=== PATIENT | female | born 1965 | race Caucasian/White ===

== ENCOUNTER 2020-04-29 00:22 | Emergency (ER) | payer BC, OTHER ==
[2020-04-29] MEDS ORDERED: Diphtheria,Pertussis(Acell),Tetanus Vaccine 0.5 ML Syringe IM ONE (00:39)
[2020-04-29] MEDS ORDERED: Ondansetron 4 MG Tab.DIS PO ONE (00:40)
--- NOTE | 2020-04-29 00:40 | EDM.PDOC ---
ED HPI GENERAL MEDICAL PROBLEM - General Stated Complaint: "fell on face" Time Seen by Provider: 04/29/20 00:31 Source of Information: Reports: Patient, Significant Other History Limitations: Reports: No Limitations - History of Present Illness INITIAL COMMENTS - FREE TEXT/NARRATIVE: This patient is a 54 year old female that presents to the ER. Patient is accompanied by significant other. Patient and significant other give history. Patient reports she had just got back home form a hockey game. She reports they pulled into the driveway, she got out of the car. They both were going to smoke a cigarette before going inside. At that time, patient became dizzy and fell forward hitting her head. Significant other and patent deny she passed out, loc, seizure. Reports she was alert and oriented to whole time. Patient reports that she drank about 8 beers tonight. The patient reports having facial pain, headache, nausea, left knee pain. The patient is alert and oriented. GCS 15. Patient airway is intact. No obvious areas of blood loss, bleeding, or obvious deformities. Patient is not taking any blood thinners. CT of head, facial, cervical ordered due to patient mechanism of fall, +ETOH, adn injury evaluated on exam. Patient reports her dizziness is due to drinking tonight. Labs, EKG, CXR ordered to r/o other causes. Zofran given for nausea. bus driver/monitor ordered. Patient undressed for exam. TDAP addressed. Onset: Today Onset Date: 04/29/20 Onset Time: 23:30 Location: Reports: Head, Face, Lower Extremity, Left Front/Back Body Image: 1 - large external hematoma, swelling, pain, tenderness. 2 - superficial laceration 3 - abrasion, swelling, pain, tenderness. Severity: Moderate Improves with: Reports: None Worsens with: Reports: None Associated Symptoms: Reports: Headaches, Nausea/Vomiting. Denies: Confusion, Chest Pain, Cough, cough w sputum, Diaphoresis, Fever/Chills, Loss of Appetite, Malaise, Rash, Seizure, Shortness of Breath, Syncope, Weakness Treatments CUSTOMER SERVICE SECURITY OFFICER: Reports: Cold Therapy Forehead Pain Score (Numeric/FACES): 9 - Related Data Allergies Allergy/AdvReac Type Severity Reaction Status Date / Time Penicillins Allergy Anaphylactic Verified 04/29/20 00:43 Shock Home Meds: Home Meds . [No Known Home Meds] 04/29/20 [History] ED ROS GENERAL - Review of Systems Review Of Systems: See Below Constitutional: Reports: No Symptoms HEENT: Reports: Other (facial pain, jaw pain) Respiratory: Reports: No Symptoms. Denies: Shortness of Breath, Pleuritic Chest Pain, Cough, Sputum, Hemoptysis Cardiovascular: Reports: No Symptoms. Denies: Chest Pain, Dyspnea on Exertion, Edema, Palpitations, Syncope Endocrine: Reports: No Symptoms GI/Abdominal: Reports: Nausea. Denies: Abdominal Pain, Difficulty Swallowing, Vomiting : Reports: No Symptoms Musculoskeletal: Reports: Joint Pain (left anterior knee), Joint Swelling (left anterior knee) Skin: Reports: Bruising (facial), Wound (facial abrasion) Neurological: Reports: Dizziness, Headache. Denies: Confusion, Seizure Psychiatric: Reports: No Symptoms Hematologic/Lymphatic: Reports: No Symptoms Immunologic: Reports: No Symptoms ED EXAM, HEAD INJURY - Physical Exam Exam: See Below Exam Limited By: No Limitations General Appearance: Alert, WD/WN, No Apparent Distress, Obese Head: Facial Ecchymosis (central forehead), Facial Lacerations (superficial philtrum laceration. 1cm.), Facial Swelling (central forehead), Facial Tenderness (central forehead. Right inferior, supraorbital tenderness. Nasal tenderness. ). No: Scalp Lacerations, Scalp Swelling, Scalp Abrasions, Scalp E cchymosis, Scalp Hematoma, Scalp Tenderness, Active Bleeding Nexus Criteria: Evidence of Intoxication, Painful Distraction Injuries. No: Posterior, Midline Cervical Tenderness, Altered Level of Consciousness, Focal Neurological Deficit Eyes: Bilateral Eye: EOMI, Normal Inspection, PERRL Ears: Normal External Exam, Normal Canal, Hearing Grossly Normal, Normal TMs Nose: Normal Inspection, Normal Mucousa, No Blood Throat/Mouth: Normal Inspection, Normal Lips, Normal Teeth, Normal Gums, Normal Oropharynx, Normal Voice, No Airway Compromise, Other (Moderate trismus. mandib le bilateral clicking on opening and closing. Patient reports chronic TMJ, that clicking is chronic per patient. ). No: Dental Tenderness, Dental Trauma, Lip Swelling, Muffled Voice, Tongue Swelling, Uvular Deviation, Uvular Edema Neck: Non-Tender, Full Range of Motion, Normal Alignment (no stepoffs), Normal Inspection. No: Muscle Spasm, Painful Range of Motion, Paraspinous Muscle Tender, Spinous Processes Tender, Stiff Neck, Tenderness, Tender Lateral, Tender Midline Respiratory: No Respiratory Distress, Lungs Clear, Normal Breath Sounds, No Accessory Muscle Use, Chest Non-Tender Cardiovascular: Normal Peripheral Pulses, Regular Rate, Rhythm, No Edema, No Gallop, No JVD, No Murmur, No Rub GI/Abdominal Exam: Normal Bowel Sounds, Soft, Non-Tender, No Organomegaly, No Distention, No Abnormal Bruit, No Mass, Pelvis Stable (Female) Exam: Deferred Rectal (Female) Exam: Deferred Back Exam: Normal Inspection, Full Range of Motion. No: CVA Tenderness (L), CVA Tenderness (R), Decreased Range of Motion, Muscle Spasm, Paraspinal Tenderness, Vertebral Tenderness Extremities: Normal Range of Motion, No Pedal Edema, Normal Capillary Refill, Joint Swelling (left anterior inferior knee pain, swelling, tenderness, abrasion superficial. ROM intact. Neurovascular intact. Pulses +2, cap refill < 2 sec. Sensory/motor function intact. ) Neurologic: department secretary II-XII nml As Tested, No Motor/Sensory Deficits, Alert, Normal Mood/Affect, Oriented x 3 Skin: Normal Color, Warm/Dry - [place] Coma Score Best Eye Response ([place]): (4) Open Spontaneously Best Verbal Response ([place]): (5) Oriented Best Motor Response ([place]): (6) Obeys Commands [place] Total: 15 #1 Interpretation EKG Date: 04/29/20 Time: 13:21 Rhythm: NSR Rate (Beats/Min): 77 [place]: Normal P-Wave: Present QRS: Normal ST-T: Normal QT: Normal Comparison: NA - No Prior EKG Course - Vital Signs Last Recorded V/S: Last Vital Signs Temp 97.2 F 04/29/20 02:20 Pulse 90 04/29/20 00:38 Resp 20 04/29/20 00:38 BP 146/75 H 04/29/20 00:38 Pulse Ox 97 04/29/20 00:38 - Orders/Labs/Meds Orders: Active Orders 24 hr Category Date Time Status Cardiac Monitoring [RC] . DIRECTED Care 04/29/20 00:37 Active EKG Documentation Completion [RC] STAT Care 04/29/20 00:33 Active Neuro Check [RC] Q1HR Care 04/29/20 02:04 Active Vaccines to be Administered [RC] PER UNIT ROUTINE Care 04/29/20 00:39 Active Cervical Spine wo Cont [CT] Stat Exams 04/29/20 00:32 Taken Chest 2V [CR] Stat Exams 04/29/20 00:33 Taken Head wo Cont [CT] Stat Exams 04/29/20 00:32 Taken Head wo Cont [CT] Stat Exams 04/29/20 02:05 Ordered Knee Min 4V Lt [CR] Stat Exams 04/29/20 00:32 Taken Max Facial Sinus wo Cont [CT] Stat Exams 04/29/20 00:32 Taken Labs: Laboratory Tests 04/29/20 04/29/20 04/29/20 Range/Units 00:33 01:23 01:23 WBC 9.7 (5.0-10.0) 10^3/uL RBC 5.03 (4.00-5.50) 10^6/uL Hgb 16.0 (12.0-16.0) g/dL Hct 46.6 (37.0-47.0) % MCV 92.6 (82.0-94.0) fL MCH 31.8 (27.0-32.0) pg MCHC 34.3 (33.0-38.0) g/dL RDW Coeff of Kelsie 12.9 (11.0-15.0) % Plt Count 267 (150-400) 10^3/uL Neut % (Auto) 67.7 (35-85) % Lymph % (Auto) 22.0 (10-55) % [place] % (Auto) 7.1 (0-16) % Eos % (Auto) 2.8 (0-5) % Baso % (Auto) 0.4 (0-3) % Neut # (Auto) 6.53 (1.80-7.00) 10^3/uL Lymph # (Auto) 2.13 (1.00-4.80) 10^3/uL [place] # (Auto) 0.69 (0.00-0.80) 10^3/uL Eos # (Auto) 0.27 (0.00-0.45) 10^3/uL Baso # (Auto) 0.04 10^3/uL PT 10.0 (9.7-12.3) SEC INR 0.99 (0.92-1.18) APTT 23.1 L (23.2-32.3) SEC Sodium 148 H (136-145) mEq/L Potassium 3.8 (3.5-5.0) mEq/L Chloride 104 (98-106) mEq/L Carbon Dioxide 30 (21-32) mmol/L BUN 11 (7-18) mg/dL Creatinine 1.0 (0.6-1.0) mg/dL Est Cr Clr Drug Dosing 66.39 mL/min Estimated GFR (MDRD) 58 L (>=60) mL/min Glucose 98 (75-99) mg/dL Lactic Acid (0.4-2.0) mmol/L Calcium 8.9 (8.4-10.1) mg/dL Total Bilirubin 0.9 (0.0-1.0) mg/dL AST 18 (15-37) U/L ALT 35 (12-78) U/L Alkaline Phosphatase 80 (46-116) U/L Troponin I < 0.017 (0.00-0.06) ng/mL Total Protein 8.1 (6.4-8.2) g/dL Albumin 4.0 (3.4-5.0) g/dL Ethyl Alcohol 160 H (0-3) mg/dL 04/29/20 Range/Units 01:23 WBC (5.0-10.0) 10^3/uL RBC (4.00-5.50) 10^6/uL Hgb (12.0-16.0) g/dL Hct (37.0-47.0) % MCV (82.0-94.0) fL MCH (27.0-32.0) pg MCHC (33.0-38.0) g/dL RDW Coeff of Kelsie (11.0-15.0) % Plt Count (150-400) 10^3/uL Neut % (Auto) (35-85) % Lymph % (Auto) (10-55) % [place] % (Auto) (0-16) % Eos % (Auto) (0-5) % Baso % (Auto) (0-3) % Neut # (Auto) (1.80-7.00) 10^3/uL Lymph # (Auto) (1.00-4.80) 10^3/uL [place] # (Auto) (0.00-0.80) 10^3/uL Eos # (Auto) (0.00-0.45) 10^3/uL Baso # (Auto) 10^3/uL PT (9.7-12.3) SEC INR (0.92-1.18) APTT (23.2-32.3) SEC Sodium (136-145) mEq/L Potassium (3.5-5.0) mEq/L Chloride (98-106) mEq/L Carbon Dioxide (21-32) mmol/L BUN (7-18) mg/dL Creatinine (0.6-1.0) mg/dL Est Cr Clr Drug Dosing mL/min Estimated GFR (MDRD) (>=60) mL/min Glucose (75-99) mg/dL Lactic Acid 1.2 (0.4-2.0) mmol/L Calcium (8.4-10.1) mg/dL Total Bilirubin (0.0-1.0) mg/dL AST (15-37) U/L ALT (12-78) U/L Alkaline Phosphatase (46-116) U/L Troponin I (0.00-0.06) ng/mL Total Protein (6.4-8.2) g/dL Albumin (3.4-5.0) g/dL Ethyl Alcohol (0-3) mg/dL Meds: Medications Discontinued Medications Generic Name Dose Route Start Last Admin Trade Name Freq PRN Reason Stop Dose Admin Acetaminophen 1,000 mg 04/29/20 02:13 04/29/20 02:20 Tylenol Extra Strength PO 04/29/20 02:14 1,000 mg ONETIME ONE Administration Diphtheria/Tetanus/Acell Pertussis 0.5 ml 04/29/20 00:39 04/29/20 00:46 Boostrix IM 04/29/20 00:40 0.5 ml .ONCE ONE Administration Ondansetron HCl 4 mg 04/29/20 00:40 04/29/20 00:46 Zofran Odt PO 04/29/20 00:41 4 mg ONETIME ONE Administration - Radiology Interpretation Free Text/Narrative:: CXR: no acute findings Left Knee Xray: No acute findings Cervical CT: No acute findings Facial CT: No fractures Head CT: Soft tissue contusion overlying the frontal calvarium with favored trace extra-axial blood products are favored along the inferior right frontal lobe. CT Results Date: 04/29/20 CT Results Time: 01:45 - Re-Assessments/Exams Free Text/Narrative Re-Assessment/Exam: 04/29/20 01:51 Spoke to patient and significant other about her results. 04/29/20 0200 Called [facility] to speak with neurosurgeon Dr. Tellez. He has reviewed the patient ct and discussed the patient neurological status. He reports he can barely see the bleed. He reports there is nothing to do from a neurosurgical standpoint at this time. He reports no need to transfer the patient due to no intervention at this time. He reports just repeat head ct at 8am, if no increase in size and no neurological changes, can discharge the patient home. Due to head CT being done in 6 hours, will do an extended ER on patient, will discharge home if meets neurosurgeon criteria. 04/29/20 02:24 I spent a good 20 minutes talking with the patient and about patient condition and need for repeat head ct. Also discussed neurological checks and followup with neurosurgery. She states that she does not want to stay here any longer. She reports she is fine and just wants to go home. She reports she had a bad previous experience with a doctor years ago and does not want to stay here. She also has refused transfer to another facility. She reports her bad experience was not in the ER today. The patient does not appear to have gait ataxia. She is alert and oriented. Her alcohol level is 116. The reprots that since she wants to go home, he will take her home. He reports that its her decision. I discussed with him that she has increased ETOH and head injury. I explained to him that he is the responsible person for her. He reports that he will take her home and she will not stay because that is her request. He has assumed responsibility for her care and will take her AMA. I explained at great length the risk involved to both of them if she leaves that she could , the bleed could worsen. I also went over great detail things to look out for and return. I also asked if they would at least return for a repeat head ct. They said she may return later today to do that. Both will sign an AMA form and both are fully aware of the risks involved. Departure - Departure Time of Disposition: 02:21 Disposition: Against Medical Advice 07 Condition: Fair Clinical Impression: Concussion injury of brain, Intracranial hemorrhage Facial laceration Qualifiers: Encounter type: initial encounter Qualified Code(s): S01.81XA - Laceration without foreign body of other part of head, initial encounter Traumatic hematoma of face Qualifiers: Encounter type: initial encounter Qualified Code(s): S00.83XA - Contusion of other part of head, initial encounter Knee contusion Qualifiers: Encounter type: initial encounter Laterality: left Qualified Code(s): S80.02XA - Contusion of left knee, initial encounter Elevated ETOH level Qualifiers: Blood alcohol level: 120-199 mg/100 ml Qualified Code(s): Y90.6 - Blood alcohol level of 120-199 mg/100 ml - Discharge Information *PRESCRIPTION DRUG MONITORING PROGRAM REVIEWED*: Not Applicable *COPY OF PRESCRIPTION DRUG MONITORING REPORT IN PATIENT ALANNAH: Not Applicable Instructions: Traumatic Brain Injury, Facial or Scalp Contusion, [id number], Preventing Traumatic Brain Injury, Adult, Contusion, [id number], Head Injury, Adult, [id number], Nonsutured Laceration Care, Hematoma, [id number] Referrals: PCP,None [Primary Care Provider] - Additional Instructions: Followup with neurosurgery [facility] by calling for appointment [phone] Return to the ER for worsening of condition such as seizures, can not wake up, vomiting, not breathing, confusion, or any other concerns Increase fluids Tylenol for pain Keep wounds clean Knee: Rest, Ice, Elevate Face: Ice to reduce swelling Avoid Motrin, Aspirin, Excedrin, Aleve (NSAIDS) Please be aware, you have left against medical advice and are fully aware of the risk involved. Bleeding on the brain may worsen and may cause you to . Sepsis Event Note (ED) - Evaluation Sepsis Screening Result: No Definite Risk - Focused Exam Vital Signs: Vital Signs Temp Temp Pulse Resp BP Pulse Ox 04/29/20 02:20 97.2 F 04/29/20 00:38 97.7 F 90 20 146/75 H 97 - My Orders Last 24 Hours: My Active Orders 04/29/20 00:32 Cervical Spine wo Cont [CT] Stat Head wo Cont [CT] Stat Knee Min 4V Lt [CR] Stat Max Facial Sinus wo Cont [CT] Stat 04/29/20 00:33 EKG Documentation Completion [RC] STAT Chest 2V [CR] Stat 04/29/20 00:37 Cardiac Monitoring [RC] . DIRECTED 04/29/20 00:39 Vaccines to be Administered [RC] PER UNIT ROUTINE 04/29/20 02:04 Neuro Check [RC] Q1HR 04/29/20 02:05 Head wo Cont [CT] Stat - Assessment/Plan Last 24 Hours: My Active Orders 04/29/20 00:32 Cervical Spine wo Cont [CT] Stat Head wo Cont [CT] Stat Knee Min 4V Lt [CR] Stat Max Facial Sinus wo Cont [CT] Stat 04/29/20 00:33 EKG Documentation Completion [RC] STAT Chest 2V [CR] Stat 04/29/20 00:37 Cardiac Monitoring [RC] . DIRECTED 04/29/20 00:39 Vaccines to be Administered [RC] PER UNIT ROUTINE 04/29/20 02:04 Neuro Check [RC] Q1HR 04/29/20 02:05 Head wo Cont [CT] Stat Plan: PLEASE SEE RN NOTE FOR PFSH
[2020-04-29 01:36] LABS: CHLORIDE,CL 104 mEq/L (98-106); PTT,PARTIAL THROMBOPLSTIN TIME 23.1 SEC (23.2-32.3); SODIUM,NA 148 mEq/L (136-145)
[2020-04-29] MEDS ORDERED: Acetaminophen 500 MG Tab PO ONE (02:13)
== END 2020-04-29 02:35 | disposition left against medical advice (07) ==
LOC: CC.ED 00:22
DX: S06.300A Unspecified focal traumatic brain injury without loss of consciousness, initial encounter (principal); S01.81XA Laceration without foreign body of other part of head, initial encounter; S80.02XA Contusion of left knee, initial encounter; R78.0 Finding of alcohol in blood; Y90.6 Blood alcohol level of 120-199 mg/100 ml; Z23 Encounter for immunization; Z88.0 Allergy status to penicillin; W22.8XXA Striking against or struck by other objects, initial encounter
CPT/HCPCS: 36415; 70450; 70486; 71046; 72125; 73564-LT; 80053; 80307; 83605; 84484; 85025; 85610; 85730; 90471; 90715; 93005; 99284-25; A9270-GY

== ENCOUNTER 2024-11-21 18:50 | Emergency (ER) | payer SELFPAY ==
[2024-11-21] MEDS: Tetracaine HCl/PF 0.5% 4 ML Bottle EYELF ONE (19:29)
[2024-11-21] MEDS: Fluorescein 1 MG Ophth Strip EYELF ONE (19:29)
== END 2024-11-21 19:26 | disposition home or self-care (01) ==
LOC: CC.ED 18:50
DX: S05.02XA Injury of conjunctiva and corneal abrasion without foreign body, left eye, initial encounter (principal); F17.210 Nicotine dependence, cigarettes, uncomplicated; Z88.0 Allergy status to penicillin; X58.XXXA Exposure to other specified factors, initial encounter; Y93.89 Activity, other specified
CPT/HCPCS: 99283